=== PATIENT | female | born 1980 | race Caucasian/White ===

== ENCOUNTER 2017-10-22 03:15 | Emergency (ER) | payer OTHER ==
[~2017-10-22] VITALS: Ht 165.1 cm; Wt 90.7 kg
[2017-10-22] MEDS ORDERED: ACCUNEB SO1.25 MG/1 INH (03:27)
[2017-10-22] MEDS ORDERED: TRAMADOL 50 MG50 MG PO (05:00)
[2017-10-22] MEDS ORDERED: AUGMENTIN 875-1 EACH PO (05:03)
== END 2017-10-22 05:30 | disposition home or self-care (01) ==
LOC: ER 03:15
DX: S01.01XA Laceration without foreign body of scalp, initial encounter (principal); S50.12XA Contusion of left forearm, initial encounter; S50.11XA Contusion of right forearm, initial encounter; S06.0X0A Concussion without loss of consciousness, initial encounter; S61.250A Open bite of right index finger without damage to nail, initial encounter; F17.210 Nicotine dependence, cigarettes, uncomplicated; F10.99 Alcohol use, unspecified with unspecified alcohol-induced disorder; Y04.0XXA Assault by unarmed brawl or fight, initial encounter; Y93.89 Activity, other specified; Y92.89 Other specified places as the place of occurrence of the external cause; Y99.8 Other external cause status